=== PATIENT | female | born 1960 | race Caucasian/White ===

== ENCOUNTER 2025-06-18 10:09 | Inpatient (IN) | payer OTHER ==
[2025-06-18 10:36] LABS: #Basophils 0.03 10x3/uL (0.0-0.2); #Eosinophils 0.12 10x3/uL (0.0-0.5); #Monocytes 0.27 10x3/uL (0.0-1.1); #Neutrophils 2.03 10x3/uL (1.5-8.4); %Basophils 0.7 % (0.0-2.0); %Eosinophils 3.0 % (0.0-6.0); %Lymphocytes 39.4 % (18.0-47.0); %Monocytes 6.7 % (0.0-10.0); %Neutrophils 50.0 % (40.0-75.0); Hematocrit 35.2 % (34.9-44.5); Hemoglobin 11.7 g/dL (12.0-15.5); Mean Corpuscular Hemoglobin 29.7 pg (27.0-33.0); Mean Corpuscular Volume 89.3 fL (81.6-98.3); Platelet Count 203 10x3/uL (150-450); Red Blood Cell (RBC) Count 3.94 10x6/uL (3.90-5.03); White Blood Cell (WBC) Count 4.06 10x3/uL (3.5-10.5)
[2025-06-18 10:50] LABS: INR-International Normal Ratio 1.0; PTT 24.2 sec (22.0-33.0); Prothrombin Time 10.8 sec (9.5-12.1)
[2025-06-18] MEDS ORDERED: Aspirin Chewable 81 MG TAB ONE (10:50)
[2025-06-18 10:51] LABS: ALT (SGPT) 19 U/L (Less than 34); AST (SGOT) 22 U/L (11-34); Albumin 3.9 g/dL (3.1-4.5); Alkaline Phosphatase 44 U/L (40-110); Anion Gap 12 mmol/L (10-20); BUN (Urea Nitrogen) 21 mg/dL (9.8-20.1); Bilirubin, Total 0.3 mg/dL (0.3-1.2); Calc. Creatinine Clearance 0 mL/min (70-130); Calcium 9.0 mg/dL (7.8-10.44); Carbon Dioxide 22 mmol/L (23-31); Chloride 109 mmol/L (98-107); Globulin 3.3 g/dL (2.4-3.5); Glucose 139 mg/dL (80-115); Potassium 3.9 mmol/L (3.5-5.1); Sodium 139 mmol/L (136-145)
[2025-06-18 10:57] LABS: Troponin I Less than 0.010 ng/mL (< 0.028)
[2025-06-18] MEDS ORDERED: Iopamidol 370 76% 100 ML VIAL ONE (14:10)
[2025-06-18] MEDS ORDERED: hydrALAZINE 20 MG/ML VIAL SLOW IVP PRN (14:28)
[2025-06-18] MEDS ORDERED: Ondansetron PF 4 MG/2 ML Vial IVP PRN (14:28)
[2025-06-18] MEDS ORDERED: Calcium Carbonate 500 MG ChewTAB PO PRN (14:28)
[2025-06-18] MEDS ORDERED: Senokot S 8.6-50 MG TAB PO PRN (14:28)
[2025-06-18] MEDS ORDERED: Acetaminophen 325 MG TAB PO PRN (14:28)
[2025-06-18] MEDS ORDERED: Electrolyte Replacement Protocol 1 EACH FS PRN (14:30)
[2025-06-18 15:05] VITALS: BMI 29.2
[2025-06-19 05:44] LABS: #Basophils 0.03 10x3/uL (0.0-0.2); #Eosinophils 0.17 10x3/uL (0.0-0.5); #Monocytes 0.37 10x3/uL (0.0-1.1); #Neutrophils 2.37 10x3/uL (1.5-8.4); %Basophils 0.6 % (0.0-2.0); %Eosinophils 3.5 % (0.0-6.0); %Lymphocytes 40.0 % (18.0-47.0); %Monocytes 7.5 % (0.0-10.0); %Neutrophils 48.2 % (40.0-75.0); Hematocrit 33.5 % (34.9-44.5); Hemoglobin 11.1 g/dL (12.0-15.5); Mean Corpuscular Hemoglobin 29.8 pg (27.0-33.0); Mean Corpuscular Volume 89.8 fL (81.6-98.3); Platelet Count 194 10x3/uL (150-450); Red Blood Cell (RBC) Count 3.73 10x6/uL (3.90-5.03); White Blood Cell (WBC) Count 4.92 10x3/uL (3.5-10.5)
[2025-06-19 06:02] LABS: Anion Gap 11 mmol/L (10-20); BUN (Urea Nitrogen) 20 mg/dL (9.8-20.1); Calc. Creatinine Clearance 63 mL/min (70-130); Calcium 8.5 mg/dL (7.8-10.44); Carbon Dioxide 22 mmol/L (23-31); Cardiac Risk 4.1 (Less than 4.5); Chloride 109 mmol/L (98-107); Cholesterol 197 mg/dl (< 200 Desired); Glucose 94 mg/dL (80-115); HDL Cholesterol 48 mg/dL (>60 Neg Risk); LDL Cholesterol, Calculated 121 mg/dL; Potassium 4.2 mmol/L (3.5-5.1); Sodium 138 mmol/L (136-145); Triglycerides 141 mg/dL (Less than 150)
[2025-06-19] MEDS: Aspirin 81 mg Enteric Coated Tablet PO SCH (10:06)
[2025-06-19] MEDS: Enoxaparin 40 MG (0.4 mL) SYRINGE SC SCH (10:08)
[2025-06-19 17:00] VITALS: BP 148/98; TEMP 98.1
== END 2025-06-19 18:47 | disposition home or self-care (01) | DRG 65 ==
LOC: CSHERS 10:09 → CSHTELE 13:44 → OBSVTOIN 06-19 08:51 → CSHTELE 06-19 11:11
PROVIDERS: ADMIT Family Medicine; ATTEND Family Medicine
DX: I63.89 Other cerebral infarction (principal); G81.91 Hemiplegia, unspecified affecting right dominant side; I10 Essential (primary) hypertension; E78.5 Hyperlipidemia, unspecified; Z98.890 Other specified postprocedural states; Z88.0 Allergy status to penicillin; R29.702 NIHSS score 2; Z79.899 Other long term (current) drug therapy; Z79.890 Hormone replacement therapy; E03.9 Hypothyroidism, unspecified; Z90.710 Acquired absence of both cervix and uterus
CPT/HCPCS: 36415; 36416; 70450; 70496; 70498; 70551; 71045; 80048; 80053; 80061; 83036; 84484; 85025; 85610; 85730; 93005; 93306; 94760; G0378; J1650; Q9967